=== PATIENT | male | born 1975 | race Caucasian/White ===

== ENCOUNTER 2025-04-06 11:25 | Emergency (ER) | payer OTHER, SELFPAY ==
--- OUTSIDE RECORDS SUMMARY | 2023-10-19 06:30 | XMS_ITS ---
Author Organization [facility] [address] [address] Address [address] [place] [address] Care Team Providers Care Leaf Tier Name Role Phone ORAL MARTIN Primary Care Provider [phone] Monisha Domínguez Unavailable [phone] Encounters Encounter Location Date Provider Diagnosis [facility] [address] [place] [address] 10/19/2023 ORAL MARTIN Plan Of Treatment Next Appt Details Provider Name:Monisha Domínguez, 0 12/18/2025 01:00:00 PM, [address], [address], [place], [address], Progress Notes * ASHOK MENSAHOB:1975 (50 yo M)Acc No.[id number]:10/19/2023 CPE Patient: BLANE VASQUEZ Provider: Melvin Martin MD :1975 A ge:48 Y S ex:Male Date:10/19/2023 Address:[id number] Care Plan Details* * Electronic signature of MESERET MARTIN MD on 04/06/2025 at 04:22 PM EST Sign off status: Pending * Provider: Melvin Martin MD Date: 0 10/19/2023 Generated for Harry ng/Fadesireg/eTransmitting on: 1 06/07/2024 04:22 PM EST
--- OUTSIDE RECORDS SUMMARY | 2025-04-02 23:59 | XMS_ITS | Continuity of Care Document ---
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 Name Role Phone Veronica BARLOW, Miguel Madden Primary Care Physician Encounter [facility] [place] Date(s): 03/03/25 - 04/02/25 [facility] [address] [place] [id number] Attending Physician: Armen Hickman Admitting Physician: Armen Hickman Referring Physician: AdmtrArmen Encounter Type: Triage Allergies, Adverse Reactions, Alerts No Known Medication Allergies Immunizations Given and Recorded Vaccine Date Status Refusal Reason pneumococcal 23-valent vaccine 01/13/17 Given pneumococcal 13-valent vaccine 1 11/18/16 Given 1Early/Late Reason: Wan to Standard Admin Times Medications fluocinolone 0.01% topical cream 0 Refill(s), 0 Refills, 03/03/25 11:18:00 AM EST, Partial fill upon patient request if the prescription is for a schedule II opioid drug. Start Date: 03/03/25 Status: Ordered Medication Dispense Status: Completed Total Allowed Fills: 1 Fills Dispensed: 0 levothyroxine 0.025 mg oral tablet 1 tablet = 25 mcg, By Mouth, Daily, 0 Refills, Maintenance, 11/07/18 9:56:30 AM EDT Start Date: 11/07/18 Status: Ordered Medication Dispense Status: Completed Total Allowed Fills: 1 Fills Dispensed: 0 levothyroxine 0.088 mg oral tablet 90 each, 0 Refill(s), 1 TABLET 30-60 MINUTES BEFORE MORNING MEAL ORALLY ONCE A DAY, 0 Refills, 03/03/25 11:18:00 AM EST, Partial fill upon patient request if the prescription is for a schedule II opioid drug. Start Date: 03/03/25 Status: Ordered Medication Dispense Status: Completed Total Allowed Fills: 1 Fills Dispensed: 0 levothyroxine 75 mcg (0.075 mg) oral tablet 90 each, 0 Refill(s), TAKE 1 TABLET BY MOUTH EVERY MORNING ON EMPTY STOMACH, 0 Refills, 03/03/25 11:18:00 AM EST, Partial fill upon patient request if the prescription is for a schedule II opioid drug. Start Date: 03/03/25 Status: Ordered Medication Dispense Status: Completed Total Allowed Fills: 1 Fills Dispensed: 0 mupirocin 2% topical ointment 0 Refill(s), 0 Refills, 01/30/19 8:00:00 PM EDT, Partial fill upon patient request if the prescription is for a schedule II opioid drug. Start Date: 01/30/19 Status: Ordered Medication Dispense Status: Completed Total Allowed Fills: 1 Fills Dispensed: 0 triamcinolone 0.1% topical ointment 80 Gm, 0 Refill(s), PLEASE SEE ATTACHED FOR DETAILED DIRECTIONS, 0 Refills, 03/03/25 11:18:00 AM EST, Partial fill upon patient request if the prescription is for a schedule II opioid drug. Start Date: 03/03/25 Status: Ordered Medication Dispense Status: Completed Total Allowed Fills: 1 Fills Dispensed: 0 Social History Social History Type Response Smoking Status Former smoker; Type: Cigarettes; Other: quit after cancer diagnosis; entered on: 11/24/16 Sex Sex Representation Male (finding) Patient Care team information Care Team Personnel Name: Ginna Van MD Position: [facility] Physician - Oncology Member Role: Lifetime Consulting Physician Name: Elizabeth Tapia RN Position: [facility] Onco RN Member Role: Primary Care Nurse Name: Miguel Martin MD Position: [facility] Physician - Primary Care Member Role: PCP Address: [address] [place] [address], [address] Primary Care and Weight Management [address] Telecom: Care Team Related Persons Name: SUZETTE TOWNSEND Insurance Providers Guarantor name: [facility] [employer] [facility] Information #: 1 Payer: [employer] [facility] POS Payer Identifier: NA Member Number: [id number] Group Number: [id number] Subscriber Identifier: NA Relationship to Subscriber: self Coverage Type: Managed Care (Private) Coverage Verification Date: NA Telecom: NA Address: NA
--- NOTE | ~2025-04-06 | CT_ITS ---
CLINICAL HISTORY: submental induration, tooth infection CT soft tissue neck with contrast Comparison: None provided Findings: The visualized intracranial contents are unremarkable. Pharyngeal mucosal space, parapharyngeal fat, prevertebral tissues, and epiglottis are within normal limits. Salivary glands are unremarkable. No sialoliths. No suspicious thyroid nodules. Anterior of the mental protuberance of the mental protuberance of the mandible there is subcutaneous edema. No loculated fluid collection identified. No acute fractures. Or maxillary and mandibular dentition with periosteal erosion of the roots of the molars. IMPRESSION: Anterior of the mental protuberance cellulitis. No gross evidence of abscess. Poor mandibular and maxillary dentition. This document has been electronically signed by: Bill Palacios MD on 04/06/2025 18:28:18
[2025-04-06 11:34] VITALS: BP 105/65; PULSE 99; RESP 18; TEMP 36.8; O2SAT 96; BMI 24.7
--- NOTE | 2025-04-06 11:34 | ED.GENADULT ---
HPI - General Adult General Chief complaint: Dental/Oral Stated complaint: infection Time Seen by Provider: 04/06/25 16:05 Source: patient, RN notes reviewed and old records reviewed Mode of arrival: ambulatory Limitations: no limitations History of Present Illness ED Provider: KELLY Antoine HPI narrative: 50-year-old male with medical history of hypothyroidism, throat cancer s/p thyroid removal 10 years ago, presents to the ED due to concerns for dental infection. Patient states he woke up 3 days ago with pain in the upper left side molar that is worse when biting down. Patient states he woke up 2 days ago and noticed mild left-sided facial swelling with consistent upper left quadrant molar pain. Additionally, patient reports 1 day of redness of his throat and pain with swallowing. 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 Denies recent travel, fever, chills, abdominal pain, nausea, vomiting, nasal congestion, cough, black/tarry stool, urinary symptoms MD complaint: L sided dental pain, and facial swelling Related Data Previous Rx's ?Medication ?Instructions ?Recorded amoxicillin 875 mg-potassium 1 tab PO BID #14 tabs 04/06/25 clavulanate 125 mg tablet ketorolac 10 mg tablet 10 mg PO Q8H PRN pain 4 days #12 04/06/25 tabs Allergies Allergy/AdvReac Type Severity Reaction Status Date / Time venison Allergy Anaphylaxis Verified 04/06/25 11:37 Review of Systems Review of Systems: Yes all other systems are reviewed and are negative PMFSH Past Medical History Attestation statement: The following information was validated with the patient. Source: old records reviewed and nursing notes reviewed Physical Exam ED Vital Signs: Vital Signs - 24 hr 04/06/25 11:34 04/06/25 14:00 04/06/25 18:53 Temperature 98.3 F 98.0 F 97.8 F Pulse Rate 99 71 75 Respiratory Rate 18 16 Blood Pressure 105/65 130/90 H 115/83 Pulse Oximetry 96 99 99 Oxygen Delivery Method Room Air Room Air Room Air BMI result Body Mass Index 24.7 GENERAL APPEARANCE: ?AxOx4, generally well-appearing, no acute distress. HEENT: ?NC, AT. MMM. EOMI, clear conjunctiva, oropharynx with mild erythema, no tonsilar edema or exudates noted, patient speaking in full clear sentences, and tolerating oral secretions without difficulty, L sided submandibular induration that extends to the sternocleidomastoid muscle NECK: ?Supple without lymphadenopathy.? No stiffness or restricted ROM. HEART:? Normal rate and regular rhythm, normal S1/S2, no m/r/g LUNGS:? CTAB, moving air well. No crackles or wheezes are heard. ABDOMEN: ?Soft, nontender, nondistended with good bowel sounds heard. BACK: No CVAT, no obvious deformity. EXTREMITIES: ?Without cyanosis, clubbing or edema. NEUROLOGICAL: ?Grossly nonfocal. Alert and oriented, moving all 4 extremities. Observed to ambulate with normal gait. Skin: ?Warm and dry without any rash. Course Course Course Narrative: This is a Rapid Medical Examination (RME) performed by Lovely Quintero PA-C in triage. Full HPI, ROS, assessment and treatment plan per primary provider in the Main ED. Hx: 50 yo M here for eval of left facial pain/swelling, 4/10 left upper dental pain, and sore throat x2 days. Plan: labs, strep swabs Medications Administered Discontinued Medications Generic Name Dose Route Start Last Admin Trade Name Freq PRN Reason Stop Dose Admin Acetaminophen 1,000 mg in 100 mls @ 400 mls/hr 04/06/25 16:44 04/06/25 17:18 Ofirmev IV 04/06/25 16:58 Infused ONCE ONE Infusion Iohexol 100 ml 04/06/25 17:34 04/06/25 17:34 Iohexol 350 Mg/Ml 100 Ml Infus..Btl IV 04/06/25 17:35 60 ml ONCE ONE Administration Ketorolac Tromethamine 15 mg 04/06/25 16:44 04/06/25 17:03 Ketorolac Tromethamine 15 Mg/Ml Vial IVPUSH 04/06/25 16:45 15 mg ONCE ONE Administration Medical Decision Making Medical Decision Making MDM Narrative: 50-year-old male with medical history of hypothyroidism, throat cancer s/p thyroid removal 10 years ago, presents to the ED due to concerns for dental infection. Patient states he woke up 3 days ago with pain in the upper left side molar that is worse when biting down. Patient states he woke up 2 days ago and noticed mild left-sided facial swelling with consistent upper left quadrant molar pain. Additionally, patient states for the last day he has noticed some redness of his throat and pain with swallowing. 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 VS on initial observation-BP 105/65, pulse rate of 99, respiratory rate of 18, afebrile with oral temp of 98.3?, O2 saturation 96% on room air. On physical exam patient is well appearing, nontoxic, in no acute distress, HEENT exam reveals a mildly erythematous posterior oropharynx without tonsillar edema or exudates, patient is able to open the mouth fully without pain or difficulty, uvula is midline without uvular edema, Poor dentition patient is tolerating oral secretions without difficulty, no vocal changes, lungs clear to auscultation bilaterally without wheeze or rhonchi, cardiac exam reveals normal rate and rhythm without murmurs/rubs/gallops, abdomen is soft, nontender. - Patient has mild submandibular induration, however patient has history of throat cancer and has had thyroid removal. Patient states this area has been hard since the surgery 10 years ago Labs without leukocytosis/leukopenia, no left shift, H&H stable, no electrolyte abnormalities CT soft tissue neck reveals poor maxillary and mandibular dentition with periosteal erosion of the roots of the molars, with anterior cellulitis, no evidence of abscess. These findings were discussed with the patient. Patient with 3 days of L sided upper molar pain and mild L sided facial swelling. Patient endorses sore throat but rapid strep is negative, the posterior oropharynx is mildly erythematous without tonsilar exudate, uvula is midline without uvular edema, no increased work of breathing, patient is able to fully tolerate his oral secretions, speaking in full clear sentences without vocal changes or difficulty, patient is able to open his mouth fully without pain or difficulty, no evidence of trismus. Patient's airway is patent, without signs of compromise. Patient with mild submandibular induration however patient with history of throat cancer with removal of his thyroid S/P 10 years ago. Patient is afebrile today without leukocytosis. Patient was medicated with 15 mg IV Toradol, and 1 g IV Tylenol with significant improvement of his pain. Patient will be discharged with 3 day course of toradol and 7 day course of Augmentin for bacterial coverage. Patient has follow up with dentist for treatment. Patient well enough to go home for self care today. Patient is in agreement with the plan. Differential Diagnosis Differential Diagnoses: The differential diagnosis associated with the presentation includes [place]'s angina Peritonsillar abscess Dental abscess Dental infection Cellulitis Admission/Observation Consideration of admission/observation: Escalation of care including admission/observation considered Lab Data MDM Lab Attestation statement: I reviewed the patient's lab results. 04/06/25 12:17 04/06/25 12:17 Labs: Lab Results 04/06/25 Range/Units 12:17 WBC 9.9 (4.8-10.8) X10*3/uL RBC 4.56 L (4.60-5.80) X10*6/uL Hgb 14.1 (14.0-18.0) g/dl Hct 42.3 (42.0-52.0) % MCV 92.8 (80.0-98.0) fL MCH 30.9 (27.0-33.0) pg MCHC 33.3 (31.0-36.0) g/dl RDW 13.0 (11.0-16.0) % Plt Count 393 (160-400) X10*3/uL MPV 9.2 L (9.4-12.4) fL Immature Gran % (Auto) 0.2 (0.0-0.4) % Neut % (Auto) 70.9 (45-73) % Lymph % (Auto) 12.8 L (20-40) % Sabine % (Auto) 9.0 (2-11) % Eos % (Auto) 6.6 H (0-4) % Baso % (Auto) 0.5 (0-2) % Lymph # (Auto) 1.3 (1.2-4.9) X10*3/uL Sabine # (Auto) 0.9 (0.1-1.2) X10*3/uL Eos # (Auto) 0.7 H (0.0-0.4) X10*3/uL Baso # (Auto) 0.1 (0.0-0.2) X10*3/uL Abs Immat Gran (auto) 0.02 (0.00-0.03) X10*3/uL Absolute Neuts (auto) 7.0 (2.0-8.3) x10*3/uL Absolute Nucleated RBC 0.000 (0.0-0.012) X10*3/uL Nucleated RBC % (auto) 0.0 (0.0-0.2) /100WBC Sodium 142 (135-145) mmol/L Potassium 4.1 (3.3-5.1) mmol/L Chloride 107 (96-108) mmol/L Carbon Dioxide 27 (22-29) mmol/L Anion Gap 12 (12-20) BUN 14 (9-16) mg/dL Creatinine 0.97 (0.5-1.4) mg/dL Estim Creat Clear Calc 88.1 Estimated GFR > 60 Random Glucose 93 (60-115) mg/dL Calcium 9.2 (8.4-10.2) mg/dL Total Bilirubin 0.4 (0.0-1.0) mg/dL AST 20 (5-37) U/L ALT 13 (0-40) U/L Alkaline Phosphatase 105 (39-117) U/L Total Protein 7.0 (6.5-8.0) g/dL Albumin 4.2 (3.5-5.0) g/dL S. pyogenes GrpA BEL Negative (Negative) Independent Interpretation I performed an independent interpretation of an: CT Scan Interpretation: I personally interpreted the CT neck soft tissue which reveals cellulitis, without circumscribed abscess or fluid collection, I agree with the radiologist's interpretation Radiology Impression Discussion of test interpretation with radiology: I have reviewed the radiologist's reading. Radiologist Impression: CT neck soft tissue Findings: The visualized intracranial contents are unremarkable. Pharyngeal mucosal space, parapharyngeal fat, prevertebral tissues, and epiglottis are within normal limits. Salivary glands are unremarkable. No sialoliths. No suspicious thyroid nodules. Anterior of the mental protuberance of the mental protuberance of the mandible there is subcutaneous edema. No loculated fluid collection identified. No acute fractures. Or maxillary and mandibular dentition with periosteal erosion of the roots of the molars. IMPRESSION: Anterior of the mental protuberance cellulitis. No gross evidence of abscess. Poor mandibular and maxillary dentition. 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 The CT of your neck reveals some soft tissue swelling with evidence of cellulitis meaning and infection in these tissues without abscess to drain. You are being prescribed a 7 day course of Augmentin which is an antibiotic for bacterial coverage, please take the entire course of this medication and do not skip a dose or finish earlier than indicated. For pain management, you are being prescribed a 3 day course of Toradol which you were given in the emergency department which is a strong NSAID like ibuprofen for pain management. To manage pain at home, you can take 500 mg of Tylenol every 6 hours, and take the Toradol as instructed. Do not take any other NSAID medication while on Toradol such as ibuprofen, Aleve, Motrin, Naprosyn, meloxicam, or use topical NSAID creams. Please follow up with your primary care doctor and your dentist as you need further evaluation and intervention from your dentist to address your tooth pain. Please return to the emergency department if you experience fevers over 100.4? that are not controlled with Tylenol/ibuprofen, worsening dental pain, worsening swelling of your face, difficulty breathing, tightness in your throat, or any new/worsening/concerning symptoms. Prescriptions: New amoxicillin-pot clavulanate 875-125 mg tablet 1 tab PO BID Qty: 14 0RF ketorolac 10 mg tablet 10 mg PO Q8H PRN (Reason: pain) 4 Days Qty: 12 0RF Rx Instructions: Patient was medicated with 15 mg IV Toradol for pain management while in the emergency department. Interventions: ED Discharge Assessment Last Done: 04/06/25 19:46 Discharge Date/Time: 04/06/25 19:47 Print Language: Greek
[2025-04-06 12:21] LABS: MANUAL DIFF FLAG NO
[2025-04-06 12:27] LABS: Hematocrit 42.3 % (42.0-52.0); Hemoglobin 14.1 g/dl (14.0-18.0); Imm Gran Abs Auto 0.02 X10*3/uL (0.00-0.03); Imm Gran Pct Auto 0.2 % (0.0-0.4); Lymphocytes Absolute Auto 1.3 X10*3/uL (1.2-4.9); Mean Corpuscular HGB Conc 33.3 g/dl (31.0-36.0); Mean Corpuscular Hemoglobin 30.9 pg (27.0-33.0); Mean Corpuscular Volume 92.8 fL (80.0-98.0); NRBC Abs Auto 0.000 X10*3/uL (0.0-0.012); NRBC Pct Auto 0.0 /100WBC (0.0-0.2); Platelet Count 393 X10*3/uL (160-400); Red Blood Count 4.56 X10*6/uL (4.60-5.80); White Blood Count 9.9 X10*3/uL (4.8-10.8)
[2025-04-06 12:31] LABS: IDNOW Serial# 08D9AD1C; Strep A Nucleic Acid Negative (Negative)
[2025-04-06 12:41] LABS: Alanine Aminotransferase 13 U/L (0-40); Albumin Level 4.2 g/dL (3.5-5.0); Alkaline Phosphatase 105 U/L (39-117); Anion Gap 12 (12-20); Aspartate Amino Transferase 20 U/L (5-37); Blood Urea Nitrogen 14 mg/dL (9-16); Calcium 9.2 mg/dL (8.4-10.2); Carbon Dioxide 27 mmol/L (22-29); Chloride 107 mmol/L (96-108); Creatinine Clr Calc Pharmacy 88.1; Estimated Glomerular Filt Rate > 60; Potassium 4.1 mmol/L (3.3-5.1); Sodium 142 mmol/L (135-145); Total Protein 7.0 g/dL (6.5-8.0)
[2025-04-06 14:00] VITALS: BP 130/90; PULSE 71; TEMP 36.7; O2SAT 99
--- OUTSIDE RECORDS SUMMARY | 2025-04-06 16:22 | XMS_ITS | Data Portability ---
Author Organization [place] - [facility], Allergy Address [address] [address] Care Team Providers Care Mill Operator Head Name Role Phone ORAL AKBAR Primary Care Provider Assessment No assessment recorded. Plan of Treatment Reminders Order Date Submit Date Provider Last Modified By Organization Details Last Modified Time Details Appointments Establish ed 30 2025 02:30P M ROBEL Rai MD Not available Not available Not available Lab None recorded. Referral None recorded. Procedures None recorded. Surgeries None recorded. Imaging None recorded. Medication Orders None recorded. Patient TargetsNo targets recorded. Patient InstructionsNo instructions recorded. Reason for Referral None Reported. Problems Name Problem SNOMED Code Status Onset Date Resolution Date Notes Provider Name and Address Organization Details Recorded Time Allergic rhinitis 60807571 Active 2016 Other allergic rhinitis; Note: Date Diagnosed: 09/01/2016 2:47 PM (J30.89) Not Available [facility] 4 03:10:46 Mass of neck 145040459 Active 2016 Localized swelling, mass and lump, neck; Note: Date Diagnosed: 09/01/2016 2:45 PM (R22.1) Not Available [facility] 4 03:10:45 Neck swelling 482257115 Active 2016 Localized swelling, mass and lump, neck; Note: Date Diagnosed: 09/01/2016 2:45 PM (R22.1) Not Available [facility] 4 03:10:45 Hypertrop hy of adenoids 283659451 Active 2016 Hypertroph y of adenoids; Note: Date Diagnosed: 09/01/2016 3:10 PM (J35.2) Not Available [facility] 4 03:10:46 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 Neoplasm of uncertain behavior of other specified sites; Note: Date Diagnosed: 09/22/2016 4:28 PM (D48.7) Not Available [facility] 4 03:10:45 Abnormal auditory perceptio n 93706950 Active 2016 Other abnormal auditory perception s, bilateral; Note: Date Diagnosed: 10/06/2016 5:11 PM (H93.293) Not Available [facility] 4 03:10:46 Follow-up visit Active 2018 Encounter for follow-up examinatio n after completed treatment for malignant neoplasm; Note: Date Diagnosed: 02/04/2019 10:40 AM (Z08) Medical surveillan ce following completed treatment; Note: Date Diagnosed: 03/13/2017 2:43 PM (Z09) ; Start Date : 03/13/2017 Not Available [facility] 4 03:10:45 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 2018 Personal history of malignant neoplasm of other sites of lip, oral cavity, and pharynx; Note: Date Diagnosed: 02/04/2019 10:40 AM (Z85.818) Personal history of malignant neoplasm of other sites of lip, oral cavity, and pharynx; Note: Date Diagnosed: 06/25/2018 11:40 AM (Z85.818) ; Start Date : 06/25/2018 Not Available [facility] 4 03:10:46 Swelling 82652289 Active 2018 Localized swelling, mass and lump, unspecifie d; Note: Date Diagnosed: 02/21/2019 10:26 AM (R22.9) Not Available [facility] 4 03:10:46 Mass of body structure 903140060 Active 2018 Localized swelling, mass and lump, unspecifie d; Note: Date Diagnosed: 02/21/2019 10:26 AM (R22.9) Not Available [facility] 4 03:10:46 Food and drink intake - finding 597764215 Active 2022 Other symptoms and signs concerning food and fluid intake; Note: Date Diagnosed: 02/15/2023 2:46 PM (R63.8) Not Available [facility] 03:10:45 Dysphagia 16288098 Active 2023 ROBEL HAMMOND MD [address] [place] [address],[place] [address], [place], [phone] , [facility] 15:26:24 Problem Notes None recorded. Procedures Surgical History Date Name Laterality Status Provider Name and Address Organization Details Recorded Time 02/20/2024 FFL_RE completed ROBEL HAMMOND MD [address] [place] [address],[place] [address], [place], [address], [facility] 02/20/2024 15:26:31 Imaging Results None recorded. Procedure Notes None recorded. Medical Equipment None Reported. Medications Name Sig Start Date Stop Date Status Note LastModified by Organization Details LastModified Time fluocinolo ne 0.01 % topical cream APPLY TO AFFECTED AREA TWICE A DAY 30 DAYS active Not Available Not Available No t Available levothyrox ine 75 mcg tablet TAKE 1 TABLET BY MOUTH EVERY DAY IN THE MORNING ON EMPTY STOMACH active Not Available Not Available No t Available mupirocin 2 % topical ointment 1 a small amount to affected area 2018 active Medicatio n ID: [id number] Du ration Value: 7 Prescrib ed By Name: Robel rai MD Brand Name: mupirocin Send Method: E-Prescri bed Subs Allowed: subs OR [facility] icName: mupirocin Not Available Not Available Not Available Vitals Date Recorded Body height Body mass index (BMI) Body weight Provider Name and Address Organization Details Last Updated DateTime 02/20/2024 170.18 cm 25.5 kg/m2 98736.56 g Citlali Oh [facility] 02/20/2024 15:13:54 Social History None recorded. Functional Status None recorded. Mental Status None recorded. Family History Nothing Reported. Medical History No medical history recorded. Past Encounters Encounter ID Performer Location Encounter Start Date Encounter Closed Date Diagnosis/Indication Diagnosis SNOMED-CT Code Diagnosis ICD10 Code Diagnosis IMO Codes Diagnosis Note [id number] ROBEL HAMMOND MD [facility] [address] [place] [address] 02/20/2024 14:46:14 02/20/2024 15:26:46 History of malignant neoplasm of tonsil [id number] 9102 Z85.818 Exam and Laryngosco py showed no evidence of disease. We will continue routine surveillan ce. Screening for malignant neoplasm of respiratory tract [id number] Z12.2 Exam and Laryngosco py showed no evidence of disease. We will continue routine surveillan ce. Continue yearly surveillan ce. Dysphagia 84443754 R13.1 0 minimal. post treatment. stable. Health Concerns Section Related Observation LastModified by Organization Detai ls LastModified Time None Recorded Concern Status LastModified by Organization Details LastModified Time None Recorded Advance Directives Directive None Recorded Payers Insurance Date Sequence Insurance Name Policy Number Policy Dick Covered Member ID Dick Member ID Guarantor Name 02/20/2024 1 [id number] Shawn Kennedy [id number] Shawn Kennedy Notes Date Note Type Note Provider Name and Address Organization Details Recorded Time 02/20/2024 text/html ROS as noted in the HPI visit for cancer surveillanceMr. eKnnedy is a 48 year old male who presents for routine cancer surveillance. 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 He completed chemoradiation therapy on 01/03/17. PET scan obtained on 03/21/17 revealed complete response to therapy with no residual uptake. No issues since the last visit. He is eating and drinking well. Denies pain. Denies new masses. ROBEL HAMMOND MD [address] [place] [address], [phone], [facility] - [facility] 02/20/2024 15:27:24
--- OUTSIDE RECORDS SUMMARY | 2025-04-06 16:22 | XMS_ITS ---
Author Name [facility] Organization Unknown Care Team Organization Name Specialty Phone Email Start Date End Da te [facility] [place] [facility] 01/25/2023 4
--- OUTSIDE RECORDS SUMMARY | 2025-04-06 16:23 | XMS_ITS | Patient Health Record ---
Author Organization [facility] [address] Address [address] [place] [address] Care Team Providers Care [employer] Production Specialist Name Role Phone MARTIN, ORAL Primary Care Provider Monisha Domínguez Unavailable [phone] SHIREEN PRESTON Unavailable [phone] Allergies Allergen (clinical drug ingredient) Drug/Non Drug Allergy documented on EMR Reaction Allergy Type Onset Date Status deer meat (uncoded) anaphylaxis Allergy Active Results Component Value Reference Range Flag Notes THYROID STIMULATING HORMONE WITH REFLEX TO FREE T4 AND FREE T3 Reviewed date:01/10/2025 09:33:03 AM Interpretation: Performing Lab: Notes/Report: TSH 2.77 0.40-4.00 mcIU/mL FREE THYROXINE WITH REFLEX T O FREE TRIIODOTHYRONINE Reviewed date:12/12/2024 08:45:22 AM Interpretation: Performing Lab: Notes/Report: Free T4 1.24 0.70-1.80 ng/dL PROSTATE SPECIFIC ANTIGEN ISABEL ACOSTA Reviewed date:12/12/2024 08:45:22 AM Interpretation: Performing Lab: Notes/Report: The Siemens Advia Centaur Chemiluminescent Immunoassay is used. Results obtained with different assay methods or kits cannot be used interchangeably. Results cannot be interpreted as absolute evidence of the presence or absence of malignant disease. PSA 0.58 0.00-4.00 ng/mL HEMOGLOBIN A1C Reviewed date:12/12/2024 08:45:22 AM Interpretation: Performing Lab: Notes/Report: Hemoglobin A1C 5.6 <6.5 % Mean Bld Glu Estim. 114 THYROID STIMULATING HORMONE WITH REFLEX TO FREE T4 AND FREE T3 Reviewed date:12/12/2024 09:44:48 AM Interpretation: Performing Lab: Notes/Report: TSH 4.66 0.40-4.00 mcIU/mL H TRIIODOTHYRONINE FREE Reviewed date:12/12/2024 08:45:22 AM Interpretation: Performing Lab: Notes/Report: T3, Free 323 230-420 pcg/dL COMPREHENSIVE METABOLIC PANE L Reviewed date:12/12/2024 08:45:22 AM Interpretation: Performing Lab: Notes/Report: Sodium 140 133-145 mmol/L Potassium 4.9 3.5-5.5 mmol/L Chloride 108 96-110 mmol/L CO2 27 21-32 mmol/L Anion Gap 5 3-11 Glucose 84 70-100 mg/dL BUN 9 5-25 mg/dL Creatinine 0.82 0.70-1.30 mg/dL eGFR 108 >=60 mL/min/1.73m2 Calcul ation based on the Chronic Kidney Disease Epidemiology Collaboration (CKD-EPI) equation refit without adjustment for race. BUN/Creatinine Ratio 11.0 Calcium 9.6 8.5-10.5 mg/dL AST (SGOT) 12 10-42 unit/L ALT (SGPT) 22 10-60 unit/L Alkaline Phosphatase 91 42-121 unit/L Total Protein 6.9 6.0-8.0 g/dL Albumin 4.1 3.2-5.0 g/dL Total Bilirubin 0.6 0.0-1.4 mg/dL VITAMIN D 25 HYDROXY Reviewed date:12/12/2024 08:45:22 AM Interpretation: Performing Lab: Notes/Report: Vit D, 25-Hydroxy 42.0 30.0-80.0 ng/mL LIPID PANEL WITH REFLEX TO D IRECT LDL Reviewed date:12/12/2024 08:45:22 AM Interpretation: Performing Lab: Notes/Report: Cholesterol 159 0-200 mg/dL Triglycerides 52 0-150 mg/dL HDL 66 >=40 mg/dL LDL Calculated 83 0-100 mg/dL Estimated LDL Calculated using equation: Total cholesterol - HDL cholesterol - (Triglycerides/5) VLDL Cholesterol Dima 10.4 Non HDL Chol. (LDL+VLDL) 93 <145 mg/dL Chol/HDL Ratio 2.4 0.0-4.4 CBC WITH AUTO DIFFERENTIAL Reviewed date:12/11/2024 04:10:31 PM Interpretation: Performing Lab: Notes/Report: WBC 7.8 4.8-10.8 K/mcL RBC 4.60 4.50-5.50 M/mcL Hemoglobin 14.1 13.5-17.5 g/dL Hematocrit 43.5 42.0-54.0 % MCV 94.4 79.0-98.0 FL MCH 30.6 27.0-32.0 pcg MCHC 32.4 32.0-37.0 g/dL RDW 13.2 11.0-15.0 % Platelets 392 130-400 K/mcL MPV 9.2 7.0-11.0 FL NRBC 0.0 <1.0 % NRBC Absolute 0.00 <0.10 K/mcL Neutrophils Relative 61.9 Lymphocytes Relative 23.6 Monocytes Relative 9.1 Eosinophils Relative 4.2 Basophils Relative 0.9 Immature Granulocytes Relative 0.3 Neutrophils Absolute 4.85 1.50-7.00 K/mcL Lymphocytes Absolute 1.85 1.00-5.00 K/mcL Monocytes Absolute 0.71 0.20-1.00 K/mcL Eosinophils Absolute 0.33 0.00-0.50 K/mcL Basophils Absolute 0.07 0.00-0.20 K/mcL Immature Granulocytes Absolute 0.02 0.00-0.03 K/mcL Reason For Referral Reason [facility] Dermatology Diagnosis 1 Finger lesion (L98.9 ) Referral Organization [facility] [address] Referring Provider First Name ORAL Referring Provider Last Name NAOMIE Referring Provider Speciality Internal M edicine Referred Provider Specialty Dermatology General Notes GALILEA MABEL 12/11 03:02:18 PM > Referral has been faxed, [facility], [address] [place] [address] , [place] [address], , Clinical Notes Kodak Harden 03:23:03 PM >refaxed [phone], Kodak Harden 12/30/2024 03:57:26 PM > [facility] for 06/26/25 at 11:30 am. Pt aware Referral Priority Urgent Medications Medication SIG (Take, Route, Frequency, Duration) Notes Start Date End Date Status Levothyroxine Sodium 88 MCG Tablet 1 tablet 30-60 minutes before morning meal Orally Once a day; Duration: 90 days dose increase 12/12/2024 Active Levothyroxine Sodium 75 MCG Tablet TAKE 1 TABLET BY MOUTH EVERY DAY IN THE MORNING ON EMPTY STOMACH; Duration: 90 Active Immunizations Vaccine Route Administration Date Status Comme nts Moderna Covid-19 Vaccine Unknown 08/12/2020 Administere d Moderna Covid-19 Vaccine Unknown 09/09/2020 Administere d Moderna Covid-19 Vaccine Unknown 04/26/2021 Administere d Tdap Unknown 10/11/2010 Administered Tdap IM Intramuscular 12/11/2023 Administered Social History Tobacco Use: Social History Observation Description Date Details (start date - stop date) Former Smoker NA - NA Social History Tobacco Use: Social Info Question Answer Notes Tobacco Use/Smoking Are you a former smoker 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 Denies concerns about current living situation. Tob: Denies Etoh: Social/infrequent Drug: Denies Problems Problem Type SNOMED Code ICD Code Onset Dates Problem Status W/U Status Risk Notes Problem Pure hypercholesterolemia (715619777) Pure hypercholesterolemia (E78.00) Active confirmed Problem Acquired hypothyroidism (420363799) Acquired hypothyroidism (E03.9) Active confirmed Problem History of malignant neoplasm of tonsil (85045745536858) History of cancer tonsil (Z85.818) Active confirmed Vital Signs Heart Rate 76 /min 12/11/2024 Oximetry 98 % 12/11/2024 Blood pressure diastolic 80 mm Hg 12/11/2024 Height 67 in 12/11/2024 Blood pressure systolic 110 mm Hg 12/11/2024 Weight 159.3 lbs 12/11/2024 BMI 24.95 kg/m2 12/11/2024 Encounters Encounter Location Date Provider Diagnosis [facility] [address] [facility] [address] [place] [address] 12/11/2024 [facility] Annual physical exam Z00.00 ; Pure hypercholesterolemia E78.00 ; Elevated TSH R79.89 ; History of cancer tonsil Z85.818 ; Finger lesion L98.9 ; Negative depression screening Z13.31 ; Screening for substance abuse Z13.89 and Encounter for examination of blood pressure without abnormal findings Z01.[address] [facility] [address] [place] [address] 12/11/2024 ORAL MARTIN [facility] [address] [facility] [address] [place] [address] 12/12/2024 ORAL MARTIN Elevated TSH R79.89 [facility] [address] [address] 01/10/2025 ORAL MARTIN Assessments Encounter Date Diagnosis (ICD Code) Assessment Notes Treatment Notes Treatment Clinical Notes Section Notes 12/11/2024 Pure hypercholesterolemia (ICD-10 - E78.00) #Labs: Baseline laboratory evaluation including CBC, CMP, lipid panel, hemoglobin A1c, TSH, and vitamin D ordered. #HLD: Most recent lipid panel reveals mildly elevated total cholesterol, 213, LDL 138. Patient is educated that lifestyle changes including increasing physical activity and dietary changes can aid in decreasing cholesterol levels. Recommending a diet rich in fruits, vegetables, fiber, and healthy fats such as those found in fish and nuts. Limit sugar, processed foods, fried foods, alcohol, red meat, and unhealthy fats such as trans fats and saturated fat. Consider fish oil supplement. #Hypothyroid: Labs obtained 01/11/2024 revealed mildly elevated TSH (5.29). Repeat TSH unavailable for my review, ordered today. Clinically the patient is euthyroid.Continue levothyroxine 75mcg daily. Consider dose adjustment pending repeat labs. 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 Underwent chemoradiation and tonsillectomy without recurrence. Previously followed with Dr. Durbin with [facility] - no longer following up. Sees ENT surgeons of [facility] for annual flex laryngoscopy for surveillance. #Nailbed lesion: There is a light brown linear lesion affecting the entire length of the nailbed of the left index finger. Patient reports it has been there for nearly 9 months. Denies similar lesions anywhere else. No known family history of skin cancer/melanoma. Will provide referral to dermatology for continued care/possible biopsy. Patient seen and examined. Comprehensive discussion was done on the followin. Discussed the importance of a diet rich in fruit, vegetables, legumes and healthy fats. Patient advised to avoid processed food and carbohydrates, added sugars, and saturated/trans fats. When possible, prepare your own meals and avoid fast food. Read nutrition labels - avoid ingredients including high fructose corn syrup and preservatives. Be contentious of daily calorie intake and weight. 2. Discussed the importance of regular physical activity. Recommended a goal 6-10k steps or 30 minutes of walking per day. Discussed the benefit of weight-bearing exercise and strength training with proper body mechanics/safety precautions. Other activities including cycling, hiking, etc. are recommended and encouraged. Patient advised to seek medical attention for any SOB, chest pain, muscle or joint pain associated with exercise. 3. Discussed risks and benefits of age-appropriate screening guidelines including but not limited to colonoscopy and PSA. 4. Discussed safe driving, utilization of seat belts, and the importance of refraining from smartphone while driving. 5. Age-appropriate immunizations were discussed including but not limited to COVID vaccine, influenza vaccine, Tdap vaccine ([place]2023), etc. All questions answered to the patients satisfaction. Patient demonstrates understanding of diagnosis and treatments discussed. Follow-up at next scheduled appointment, sooner should any questions/concerns arise. Case discussed with collaborating physician Chace Martin who has reviewed the assessment/plan. Chart, medications, labs, and vital signs reviewed. Dictation completed with the use of [email or web address] voice recognition software, prone to medical misidentifications and grammatical errors. All errors are unintentional. Although the practitioner does try to identify and correct errors, some may be present. Please do not hesitate to contact the practitioner for clarification. 12/11/2024 Annual physical exam (ICD-10 - Z00.00) #Labs: Baseline laboratory evaluation including CBC, CMP, lipid panel, hemoglobin A1c, TSH, and vitamin D ordered. #HLD: Most recent lipid panel reveals mildly elevated total cholesterol, 213, LDL 138. Patient is educated that lifestyle changes including increasing physical activity and dietary changes can aid in decreasing cholesterol levels. Recommending a diet rich in fruits, vegetables, fiber, and healthy fats such as those found in fish and nuts. Limit sugar, processed foods, fried foods, alcohol, red meat, and unhealthy fats such as trans fats and saturated fat. Consider fish oil supplement. #Hypothyroid: Labs obtained 01/11/2024 revealed mildly elevated TSH (5.29). Repeat TSH unavailable for my review, ordered today. Clinically the patient is euthyroid.Continue levothyroxine 75mcg daily. Consider dose adjustment pending repeat labs. 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 Underwent chemoradiation and tonsillectomy without recurrence. Previously followed with Dr. Durbin with [facility] - no longer following up. Sees E[facility] surgeons of [facility] for annual flex laryngoscopy for surveillance. #Nailbed lesion: There is a light brown linear lesion affecting the entire length of the nailbed of the left index finger. Patient reports it has been there for nearly 9 months. Denies similar lesions anywhere else. No known family history of skin cancer/melanoma. Will provide referral to dermatology for continued care/possible biopsy. Patient seen and examined. Comprehensive discussion was done on the followin. Discussed the importance of a diet rich in fruit, vegetables, legumes and healthy fats. Patient advised to avoid processed food and carbohydrates, added sugars, and saturated/trans fats. When possible, prepare your own meals and avoid fast food. Read nutrition labels - avoid ingredients including high fructose corn syrup and preservatives. Be contentious of daily calorie intake and weight. 2. Discussed the importance of regular physical activity. Recommended a goal 6-10k steps or 30 minutes of walking per day. Discussed the benefit of weight-bearing exercise and strength training with proper body mechanics/safety precautions. Other activities including cycling, hiking, etc. are recommended and encouraged. Patient advised to seek medical attention for any SOB, chest pain, muscle or joint pain associated with exercise. 3. Discussed risks and benefits of age-appropriate screening guidelines including but not limited to colonoscopy and PSA. 4. Discussed safe driving, utilization of seat belts, and the importance of refraining from smartphone while driving. 5. Age-appropriate immunizations were discussed including but not limited to COVID vaccine, influenza vaccine, Tdap vaccine (2023), etc. All questions answered to the patients satisfaction. Patient demonstrates understanding of diagnosis and treatments discussed. Follow-up at next scheduled appointment, sooner should any questions/concerns arise. Case discussed with collaborating physician Chace Martin who has reviewed the assessment/plan. Chart, medications, labs, and vital signs reviewed. Dictation completed with the use of [email or web address] voice recognition software, prone to medical misidentifications and grammatical errors. All errors are unintentional. Although the practitioner does try to identify and correct errors, some may be present. Please do not hesitate to contact the practitioner for clarification. 12/12/2024 Elevated TSH (ICD-10 - R79.89) 12/11/2024 Elevated TSH (ICD-10 - R79.89) #Labs: Baseline laboratory evaluation including CBC, CMP, lipid panel, hemoglobin A1c, TSH, and vitamin D ordered. #HLD: Most recent lipid panel reveals mildly elevated total cholesterol, 213, LDL 138. Patient is educated that lifestyle changes including increasing physical activity and dietary changes can aid in decreasing cholesterol levels. Recommending a diet rich in fruits, vegetables, fiber, and healthy fats such as those found in fish and nuts. Limit sugar, processed foods, fried foods, alcohol, red meat, and unhealthy fats such as trans fats and saturated fat. Consider fish oil supplement. #Hypothyroid: Labs obtained 01/11/2024 revealed mildly elevated TSH (5.29). Repeat TSH unavailable for my review, ordered today. Clinically the patient is euthyroid.Continue levothyroxine 75mcg daily. Consider dose adjustment pending repeat labs. 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 Underwent chemoradiation and tonsillectomy without recurrence. Previously followed with Dr. Durbin with [facility] - no longer following up. Sees ENT surgeons of [facility] for annual flex laryngoscopy for surveillance. #Nailbed lesion: There is a light brown linear lesion affecting the entire length of the nailbed of the left index finger. Patient reports it has been there for nearly 9 months. Denies similar lesions anywhere else. No known family history of skin cancer/melanoma. Will provide referral to dermatology for continued care/possible biopsy. Patient seen and examined. Comprehensive discussion was done on the followin. Discussed the importance of a diet rich in fruit, vegetables, legumes and healthy fats. Patient advised to avoid processed food and carbohydrates, added sugars, and saturated/trans fats. When possible, prepare your own meals and avoid fast food. Read nutrition labels - avoid ingredients including high fructose corn syrup and preservatives. Be contentious of daily calorie intake and weight. 2. Discussed the importance of regular physical activity. Recommended a goal 6-10k steps or 30 minutes of walking per day. Discussed the benefit of weight-bearing exercise and strength training with proper body mechanics/safety precautions. Other activities including cycling, hiking, etc. are recommended and encouraged. Patient advised to seek medical attention for any SOB, chest pain, muscle or joint pain associated with exercise. 3. Discussed risks and benefits of age-appropriate screening guidelines including but not limited to colonoscopy and PSA. 4. Discussed safe driving, utilization of seat belts, and the importance of refraining from smartphone while driving. 5. Age-appropriate immunizations were discussed including but not limited to COVID vaccine, influenza vaccine, Tdap vaccine ([place] 2023), etc. All questions answered to the patients satisfaction. Patient demonstrates understanding of diagnosis and treatments discussed. Follow-up at next scheduled appointment, sooner should any questions/concerns arise. Case discussed with collaborating physician Chace Martin who has reviewed the assessment/plan. Chart, medications, labs, and vital signs reviewed. Dictation completed with the use of [email or web address] voice recognition software, prone to medical misidentifications and grammatical errors. All errors are unintentional. Although the practitioner does try to identify and correct errors, some may be present. Please do not hesitate to contact the practitioner for clarification. 12/11/2024 History of cancer tonsil (ICD-10 - Z85.818) #Labs: Baseline laboratory evaluation including CBC, CMP, lipid panel, hemoglobin A1c, TSH, and vitamin D ordered. #HLD: Most recent lipid panel reveals mildly elevated total cholesterol, 213, LDL 138. Patient is educated that lifestyle changes including increasing physical activity and dietary changes can aid in decreasing cholesterol levels. Recommending a diet rich in fruits, vegetables, fiber, and healthy fats such as those found in fish and nuts. Limit sugar, processed foods, fried foods, alcohol, red meat, and unhealthy fats such as trans fats and saturated fat. Consider fish oil supplement. #Hypothyroid: Labs obtained 01/11/2024 revealed mildly elevated TSH (5.29). Repeat TSH unavailable for my review, ordered today. Clinically the patient is euthyroid.Continue levothyroxine 75mcg daily. Consider dose adjustment pending repeat labs. 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 Underwent chemoradiation and tonsillectomy without recurrence. Previously followed with Dr. Durbin with [facility] - no longer following up. Sees E[facility] surgeons of [facility] for annual flex laryngoscopy for surveillance. #Nailbed lesion: There is a light brown linear lesion affecting the entire length of the nailbed of the left index finger. Patient reports it has been there for nearly 9 months. Denies similar lesions anywhere else. No known family history of skin cancer/melanoma. Will provide referral to dermatology for continued care/possible biopsy. Patient seen and examined. Comprehensive discussion was done on the followin. Discussed the importance of a diet rich in fruit, vegetables, legumes and healthy fats. Patient advised to avoid processed food and carbohydrates, added sugars, and saturated/trans fats. When possible, prepare your own meals and avoid fast food. Read nutrition labels - avoid ingredients including high fructose corn syrup and preservatives. Be contentious of daily calorie intake and weight. 2. Discussed the importance of regular physical activity. Recommended a goal 6-10k steps or 30 minutes of walking per day. Discussed the benefit of weight-bearing exercise and strength training with proper body mechanics/safety precautions. Other activities including cycling, hiking, etc. are recommended and encouraged. Patient advised to seek medical attention for any SOB, chest pain, muscle or joint pain associated with exercise. 3. Discussed risks and benefits of age-appropriate screening guidelines including but not limited to colonoscopy and PSA. 4. Discussed safe driving, utilization of seat belts, and the importance of refraining from smartphone while driving. 5. Age-appropriate immunizations were discussed including but not limited to COVID vaccine, influenza vaccine, Tdap vaccine ([place]23), etc. All questions answered to the patients satisfaction. Patient demonstrates understanding of diagnosis and treatments discussed. Follow-up at next scheduled appointment, sooner should any questions/concerns arise. Case discussed with collaborating physician Chace Martin who has reviewed the assessment/plan. Chart, medications, labs, and vital signs reviewed. Dictation completed with the use of [email or web address] voice recognition software, prone to medical misidentifications and grammatical errors. All errors are unintentional. Although the practitioner does try to identify and correct errors, some may be present. Please do not hesitate to contact the practitioner for clarification. 12/11/2024 Finger lesion (ICD-1 0 - L98.9) #Labs: Baseline laboratory evaluation including CBC, CMP, lipid panel, hemoglobin A1c, TSH, and vitamin D ordered. #HLD: Most recent lipid panel reveals mildly elevated total cholesterol, 213, LDL 138. Patient is educated that lifestyle changes including increasing physical activity and dietary changes can aid in decreasing cholesterol levels. Recommending a diet rich in fruits, vegetables, fiber, and healthy fats such as those found in fish and nuts. Limit sugar, processed foods, fried foods, alcohol, red meat, and unhealthy fats such as trans fats and saturated fat. Consider fish oil supplement. #Hypothyroid: Labs obtained 01/11/2024 revealed mildly elevated TSH (5.29). Repeat TSH unavailable for my review, ordered today. Clinically the patient is euthyroid.Continue levothyroxine 75mcg daily. Consider dose adjustment pending repeat labs. 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 Underwent chemoradiation and tonsillectomy without recurrence. Previously followed with Dr. Durbin with [facility] - no longer following up. Sees E[facility] surgeons of [facility] for annual flex laryngoscopy for surveillance. #Nailbed lesion: There is a light brown linear lesion affecting the entire length of the nailbed of the left index finger. Patient reports it has been there for nearly 9 months. Denies similar lesions anywhere else. No known family history of skin cancer/melanoma. Will provide referral to dermatology for continued care/possible biopsy. Patient seen and examined. Comprehensive discussion was done on the followin. Discussed the importance of a diet rich in fruit, vegetables, legumes and healthy fats. Patient advised to avoid processed food and carbohydrates, added sugars, and saturated/trans fats. When possible, prepare your own meals and avoid fast food. Read nutrition labels - avoid ingredients including high fructose corn syrup and preservatives. Be contentious of daily calorie intake and weight. 2. Discussed the importance of regular physical activity. Recommended a goal 6-10k steps or 30 minutes of walking per day. Discussed the benefit of weight-bearing exercise and strength training with proper body mechanics/safety precautions. Other activities including cycling, hiking, etc. are recommended and encouraged. Patient advised to seek medical attention for any SOB, chest pain, muscle or joint pain associated with exercise. 3. Discussed risks and benefits of age-appropriate screening guidelines including but not limited to colonoscopy and PSA. 4. Discussed safe driving, utilization of seat belts, and the importance of refraining from smartphone while driving. 5. Age-appropriate immunizations were discussed including but not limited to COVID vaccine, influenza vaccine, Tdap vaccine ([place] 2023), etc. All questions answered to the patients satisfaction. Patient demonstrates understanding of diagnosis and treatments discussed. Follow-up at next scheduled appointment, sooner should any questions/concerns arise. Case discussed with collaborating physician Chace Martin who has reviewed the assessment/plan. Chart, medications, labs, and vital signs reviewed. Dictation completed with the use of [email or web address] voice recognition software, prone to medical misidentifications and grammatical errors. All errors are unintentional. Although the practitioner does try to identify and correct errors, some may be present. Please do not hesitate to contact the practitioner for clarification. 12/11/2024 Negative depression screening (ICD-10 - Z13.31) #Labs: Baseline laboratory evaluation including CBC, CMP, lipid panel, hemoglobin A1c, TSH, and vitamin D ordered. #HLD: Most recent lipid panel reveals mildly elevated total cholesterol, 213, LDL 138. Patient is educated that lifestyle changes including increasing physical activity and dietary changes can aid in decreasing cholesterol levels. Recommending a diet rich in fruits, vegetables, fiber, and healthy fats such as those found in fish and nuts. Limit sugar, processed foods, fried foods, alcohol, red meat, and unhealthy fats such as trans fats and saturated fat. Consider fish oil supplement. #Hypothyroid: Labs obtained 01/11/2024 revealed mildly elevated TSH (5.29). Repeat TSH unavailable for my review, ordered today. Clinically the patient is euthyroid.Continue levothyroxine 75mcg daily. Consider dose adjustment pending repeat labs. 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 Underwent chemoradiation and tonsillectomy without recurrence. Previously followed with Dr. Durbin with [facility] - no longer following up. Sees ENT surgeons of [facility] for annual flex laryngoscopy for surveillance. #Nailbed lesion: There is a light brown linear lesion affecting the entire length of the nailbed of the left index finger. Patient reports it has been there for nearly 9 months. Denies similar lesions anywhere else. No known family history of skin cancer/melanoma. Will provide referral to dermatology for continued care/possible biopsy. Patient seen and examined. Comprehensive discussion was done on the followin. Discussed the importance of a diet rich in fruit, vegetables, legumes and healthy fats. Patient advised to avoid processed food and carbohydrates, added sugars, and saturated/trans fats. When possible, prepare your own meals and avoid fast food. Read nutrition labels - avoid ingredients including high fructose corn syrup and preservatives. Be contentious of daily calorie intake and weight. 2. Discussed the importance of regular physical activity. Recommended a goal 6-10k steps or 30 minutes of walking per day. Discussed the benefit of weight-bearing exercise and strength training with proper body mechanics/safety precautions. Other activities including cycling, hiking, etc. are recommended and encouraged. Patient advised to seek medical attention for any SOB, chest pain, muscle or joint pain associated with exercise. 3. Discussed risks and benefits of age-appropriate screening guidelines including but not limited to colonoscopy and PSA. 4. Discussed safe driving, utilization of seat belts, and the importance of refraining from smartphone while driving. 5. Age-appropriate immunizations were discussed including but not limited to COVID vaccine, influenza vaccine, Tdap vaccine (UTD 2023), etc. All questions answered to the patients satisfaction. Patient demonstrates understanding of diagnosis and treatments discussed. Follow-up at next scheduled appointment, sooner should any questions/concerns arise. Case discussed with collaborating physician Chace Martin who has reviewed the assessment/plan. Chart, medications, labs, and vital signs reviewed. Dictation completed with the use of [email or web address] voice recognition software, prone to medical misidentifications and grammatical errors. All errors are unintentional. Although the practitioner does try to identify and correct errors, some may be present. Please do not hesitate to contact the practitioner for clarification. 12/11/2024 Screening for substance abuse (ICD-10 - Z13.89) #Labs: Baseline laboratory evaluation including CBC, CMP, lipid panel, hemoglobin A1c, TSH, and vitamin D ordered. #HLD: Most recent lipid panel reveals mildly elevated total cholesterol, 213, LDL 138. Patient is educated that lifestyle changes including increasing physical activity and dietary changes can aid in decreasing cholesterol levels. Recommending a diet rich in fruits, vegetables, fiber, and healthy fats such as those found in fish and nuts. Limit sugar, processed foods, fried foods, alcohol, red meat, and unhealthy fats such as trans fats and saturated fat. Consider fish oil supplement. #Hypothyroid: Labs obtained 01/11/2024 revealed mildly elevated TSH (5.29). Repeat TSH unavailable for my review, ordered today. Clinically the patient is euthyroid.Continue levothyroxine 75mcg daily. Consider dose adjustment pending repeat labs. 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 Underwent chemoradiation and tonsillectomy without recurrence. Previously followed with Dr. Durbin with [facility] - no longer following up. Sees ENT surgeons of [facility] for annual flex laryngoscopy for surveillance. #Nailbed lesion: There is a light brown linear lesion affecting the entire length of the nailbed of the left index finger. Patient reports it has been there for nearly 9 months. Denies similar lesions anywhere else. No known family history of skin cancer/melanoma. Will provide referral to dermatology for continued care/possible biopsy. Patient seen and examined. Comprehensive discussion was done on the followin. Discussed the importance of a diet rich in fruit, vegetables, legumes and healthy fats. Patient advised to avoid processed food and carbohydrates, added sugars, and saturated/trans fats. When possible, prepare your own meals and avoid fast food. Read nutrition labels - avoid ingredients including high fructose corn syrup and preservatives. Be contentious of daily calorie intake and weight. 2. Discussed the importance of regular physical activity. Recommended a goal 6-10k steps or 30 minutes of walking per day. Discussed the benefit of weight-bearing exercise and strength training with proper body mechanics/safety precautions. Other activities including cycling, hiking, etc. are recommended and encouraged. Patient advised to seek medical attention for any SOB, chest pain, muscle or joint pain associated with exercise. 3. Discussed risks and benefits of age-appropriate screening guidelines including but not limited to colonoscopy and PSA. 4. Discussed safe driving, utilization of seat belts, and the importance of refraining from smartphone while driving. 5. Age-appropriate immunizations were discussed including but not limited to COVID vaccine, influenza vaccine, Tdap vaccine (2023), etc. All questions answered to the patients satisfaction. Patient demonstrates understanding of diagnosis and treatments discussed. Follow-up at next scheduled appointment, sooner should any questions/concerns arise. Case discussed with collaborating physician Chace Martin who has reviewed the assessment/plan. Chart, medications, labs, and vital signs reviewed. Dictation completed with the use of [email or web address] voice recognition software, prone to medical misidentifications and grammatical errors. All errors are unintentional. Although the practitioner does try to identify and correct errors, some may be present. Please do not hesitate to contact the practitioner for clarification. 12/11/2024 Encounter for examination of blood pressure without abnormal findings (ICD-10 - Z01.30) #Labs: Baseline laboratory evaluation including CBC, CMP, lipid panel, hemoglobin A1c, TSH, and vitamin D ordered. #HLD: Most recent lipid panel reveals mildly elevated total cholesterol, 213, LDL 138. Patient is educated that lifestyle changes including increasing physical activity and dietary changes can aid in decreasing cholesterol levels. Recommending a diet rich in fruits, vegetables, fiber, and healthy fats such as those found in fish and nuts. Limit sugar, processed foods, fried foods, alcohol, red meat, and unhealthy fats such as trans fats and saturated fat. Consider fish oil supplement. #Hypothyroid: Labs obtained 01/11/2024 revealed mildly elevated TSH (5.29). Repeat TSH unavailable for my review, ordered today. Clinically the patient is euthyroid.Continue levothyroxine 75mcg daily. Consider dose adjustment pending repeat labs. 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 Underwent chemoradiation and tonsillectomy without recurrence. Previously followed with Dr. Durbin with [facility] - no longer following up. Sees E[facility] surgeons of [facility] for annual flex laryngoscopy for surveillance. #Nailbed lesion: There is a light brown linear lesion affecting the entire length of the nailbed of the left index finger. Patient reports it has been there for nearly 9 months. Denies similar lesions anywhere else. No known family history of skin cancer/melanoma. Will provide referral to dermatology for continued care/possible biopsy. Patient seen and examined. Comprehensive discussion was done on the followin. Discussed the importance of a diet rich in fruit, vegetables, legumes and healthy fats. Patient advised to avoid processed food and carbohydrates, added sugars, and saturated/trans fats. When possible, prepare your own meals and avoid fast food. Read nutrition labels - avoid ingredients including high fructose corn syrup and preservatives. Be contentious of daily calorie intake and weight. 2. Discussed the importance of regular physical activity. Recommended a goal 6-10k steps or 30 minutes of walking per day. Discussed the benefit of weight-bearing exercise and strength training with proper body mechanics/safety precautions. Other activities including cycling, hiking, etc. are recommended and encouraged. Patient advised to seek medical attention for any SOB, chest pain, muscle or joint pain associated with exercise. 3. Discussed risks and benefits of age-appropriate screening guidelines including but not limited to colonoscopy and PSA. 4. Discussed safe driving, utilization of seat belts, and the importance of refraining from smartphone while driving. 5. Age-appropriate immunizations were discussed including but not limited to COVID vaccine, influenza vaccine, Tdap vaccine (UTD 2023), etc. All questions answered to the patients satisfaction. Patient demonstrates understanding of diagnosis and treatments discussed. Follow-up at next scheduled appointment, sooner should any questions/concerns arise. Case discussed with collaborating physician Chace Martin who has reviewed the assessment/plan. Chart, medications, labs, and vital signs reviewed. Dictation completed with the use of [email or web address] voice recognition software, prone to medical misidentifications and grammatical errors. All errors are unintentional. Although the practitioner does try to identify and correct errors, some may be present. Please do not hesitate to contact the practitioner for clarification. Plan Of Treatment Pending Test Test Name Order Date TSH+Free T4 09/26/2018 Lipid Panel 09/26/2018 Comp. Metabolic Panel (14) 09/26/2018 CBC 09/26/2018 CBC (COMPLETE BLOOD COUNT) 10/03/2019 CBC (COMPLETE BLOOD COUNT) 08/29/2017 COMPREHENSIVE METABOLIC PANEL 08/29/2017 COMPREHENSIVE METABOLIC PANEL 10/03/2019 LIPID PANEL 10/03/2019 LIPID PANEL 08/29/2017 PSA, SCREEN 08/29/2017 T3, FREE 04/18/2018 T4, FREE 04/18/2018 TSH WITH REFLEX TO FT4 12/12/2024 TSH WITH REFLEX TO FT4 05/31/2018 TSH WITH REFLEX TO FT4 10/03/2019 URINALYSIS, COMPLETE 10/03/2019 URINALYSIS, COMPLETE 08/29/2017 LIPID PANEL, STANDARD 12/11/2023 LIPID PANEL, STANDARD 12/11/2024 COMPREHENSIVE METABOLIC PANEL 12/11/2024 COMPREHENSIVE METABOLIC PANEL 12/11/2023 CBC (INCLUDES DIFF/PLT) 12/11/2023 CBC (INCLUDES DIFF/PLT) 12/11/2024 URINALYSIS, COMPLETE 12/11/2023 URINALYSIS, COMPLETE 10/11/2021 HEMOGLOBIN A1c 12/11/2024 PSA (FREE AND TOTAL) 12/11/2024 PSA (FREE AND TOTAL) 12/11/2023 PSA, TOTAL 10/11/2021 TSH 12/11/2023 TSH W/REFLEX TO FT4 12/11/2024 VITAMIN D,25-OH,TOTAL,IA 12/11/2024 Future Test Test Name Order Date CBC (COMPLETE BLOOD COUNT) 10/06/2020 COMPREHENSIVE METABOLIC PANEL 10/06/2020 LIPID PANEL 10/06/2020 TSH 10/06/2020 COMPLETE URINALYSIS 10/06/2020 Next Appt Details Provider Name:Monisha Domínguez, 0 12/18/2025 01:00:00 PM, [address] [facility], [facility] [address], [place], [address], Insurance Providers Payer Name Payer Address Payer Phone Subscriber Number Group Number Insured Name Patient Relationship to Insured Coverage Start Date Coverage End Date Ezequiel ANNEM[address] [place] [address] [id number] BLANE MENSAH Self - patient is the insured 6 Medical (General) History Medical History History ICD Code History of cancer tonsil Z85.818 History of HPV infection Z86.19 Acquired hypothyroidism E03.9 Surgical History Surgery Date(Month/Year) bunion correction left foot tonsillectomy
[2025-04-06] MEDS: iohexoL 350 MG/ML 100 ML INFUS..BTL IV (17:34)
[2025-04-06 18:53] VITALS: BP 115/83; PULSE 75; RESP 16; TEMP 36.6; O2SAT 99
[2025-04-06 19:46] VITALS: BP 115/83; PULSE 75; RESP 16; TEMP 36.6; O2SAT 99
== END 2025-04-06 19:47 | disposition home or self-care (01) ==
PROVIDERS: Physician Assistant Medical; Emergency Provider Emergency Medicine Emergency Medical Services; PCP Internal Medicine
DX: K12.2 Cellulitis and abscess of mouth (principal); K08.89 Other specified disorders of teeth and supporting structures; Z85.818 Personal history of malignant neoplasm of other sites of lip, oral cavity, and pharynx
CPT/HCPCS: 70491; 80053; 85025; 87651; 96374; 96375; 99284; 99285; J0131; J1885; Q9967

== ENCOUNTER → 2025-04-06 16:44 | Outpatient (BNV) | payer OTHER, SELFPAY | PROVIDERS: Emergency Provider Emergency Medicine Emergency Medical Services; PCP Internal Medicine; Visit Provider Radiology Diagnostic Radiology | DX: K04.7 Periapical abscess without sinus (principal) | CPT/HCPCS: 70491 ==